=== PATIENT | female | born 1995 | race Two or more races ===

== ENCOUNTER 2020-03-16 14:16 | Outpatient (CLI) | payer OTHER | END 2020-03-16 14:23 | disposition home or self-care (01) | LOC: SONOGRAMA 14:16 | PROVIDERS: ATTEND Surgery | DX: E22.0 Acromegaly and pituitary gigantism (principal) ==

== ENCOUNTER 2020-06-05 08:00 | Day surgery (SDC) | payer OTHER | END 2020-06-05 13:25 | disposition home or self-care (01) | LOC: CIR.AMB 08:00 | PROVIDERS: ATTEND Surgery | DX: L72.0 Epidermal cyst (principal); Z20.828 Contact with and (suspected) exposure to other viral communicable diseases ==